=== PATIENT | male | born 1985 | race Caucasian/White ===

== ENCOUNTER 2017-03-11 17:28 | Emergency (ER) | payer OTHER ==
[~2017-03-11] VITALS: Ht 175.3 cm; Wt 68.0 kg
[2017-03-11] MEDS ORDERED: TOBRAMYCIN SULFA5 M1 OPHTHALMIC (18:26)
[2017-03-11] MEDS ORDERED: ZPAK PO (18:26)
[2017-03-11 18:46] VITALS: BP 117/79
== END 2017-03-11 18:47 | disposition home or self-care (01) ==
LOC: M.ERS 17:28
DX: H00.024 Hordeolum internum left upper eyelid (principal)